=== PATIENT | female | born 1930 | race African-American/Black ===

== ENCOUNTER → 2018-01-11 | Outpatient (CLI) | payer MEDICARE ==
[~2018-01-11] MED LIST: ACETAMINOPHEN325 M1 PO; ARICEPT5 MG PO; ATORVASTATIN CA20 MG PO; FERROUS SULFAT324 MG PO; HYDROCHLOROTHIA25 MG; LISINOPRIL2.5 MG PO; METFORMIN HCL500 M2 PO; SYNTHROID75 MCG PO
== END ==
LOC: RAD 09:12
PROVIDERS: ATTEND Family Medicine
DX: R60.0 Localized edema (principal)
CPT/HCPCS: 93970